=== PATIENT | female | born 1990 | race Caucasian/White ===

== ENCOUNTER 2016-09-02 11:32 | Emergency (ER) | payer OTHER, MEDICAID ==
[2016-09-02 11:37] VITALS: RESP 16
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
[2016-09-02 13:01] VITALS: BP 110/74; PULSE 78; TEMP 97.9; O2SAT 94
== END 2016-09-02 12:59 | disposition home or self-care (01) ==
DX: S09.90XA Unspecified injury of head, initial encounter (principal); F17.200 Nicotine dependence, unspecified, uncomplicated; V49.49XA Driver injured in collision with other motor vehicles in traffic accident, initial encounter; Y92.410 Unspecified street and highway as the place of occurrence of the external cause